=== PATIENT | male | born 1985 | race Hispanic/Latino ===

== ENCOUNTER → 2020-07-01 | Outpatient (CLI) | payer OTHER ==
[~2020-07-01] MED LIST: ALBUTEROL SULFATE 0.083% 2.5 MG/3 ML INH IH ONE
== END | disposition home or self-care (01) ==
LOC: RESP 08:36
PROVIDERS: ATTEND Orthopaedic Surgery
DX: R05 Cough (principal)
CPT/HCPCS: 71046; 94060